=== PATIENT | male | born 1935 | race Caucasian/White ===

== ENCOUNTER 2018-02-20 13:15 | Emergency (ER) | payer OTHER ==
[~2018-02-20] VITALS: Ht 182.9 cm; Wt 77.1 kg
--- NOTE | 2018-02-20 13:20 | NUR ---
AZAM Corea FROM HOME D/T SYNCOPE/HYPOTENSION. TO ER BED 9, HOOKED TO MONITOR, CHANGED TO GOWN. AWAITING MD [place]
--- NOTE | 2018-02-20 13:21 | NUR ---
PLAIN GOODS HEMMER DEGRASSE AT BEDSIDE
[2018-02-20] MEDS ORDERED: IV NS 0.9% 1,000 ML BAG IV ONE ×2 (13:30→16:30)
[2018-02-20 13:54] LABS: BASOPHILS # (AUTO) 0.1 /CMM (0.0-0.2); BASOPHILS % (AUTO) 0.7 % (0.0-2.0); EOSINOPHILS % (AUTO) 0.7 % (0.0-6.0); HEMATOCRIT 36 % (39-51); LYMPHOCYTES # (AUTO) 1.6 /CMM (0.8-4.8); LYMPHOCYTES % (AUTO) 18.4 % (20.0-44.0); MEAN CORPUSCULAR HGB CONC 33 g/dl (31.0-36.0); MEAN CORPUSCULAR VOLUME 95 fL (80-96); MONOCYTES # (AUTO) 0.5 /CMM (0.1-1.30); MONOCYTES % (AUTO) 5.7 % (2.0-12.0); NEUTROPHILS # (AUTO) 6.5 /CMM (1.8-8.9); NEUTROPHILS % (AUTO) 74.5 % (43.0-81.0); PLATELET COUNT (AUTO) 236 /CMM (150-450); RED BLOOD CELL COUNT(AUTO) 3.81 MIL/uL (4.5-6.0); WHITE BLOOD COUNT (AUTO) 8.6 K/uL (4.3-11.0)
--- NOTE | 2018-02-20 14:10 | NUR ---
OFFERED TO DO ORTHOSTATIC VITAL SIGNS. PT REFUSED AND WOULD LIKE TO DO IT IN AN HOUR.
[2018-02-20 14:15] LABS: ALANINE AMINOTRANSFERASE 42 U/L (12-78); ALBUMIN 2.3 g/dL (3.4-5.0); ALKALINE PHOSPHATASE 253 U/L (46-116); ASPARTATE AMINOTRANSFERASE 56 U/L (15-37); BILIRUBIN,DIRECT 0.5 mg/dL (0.0-0.2); BILIRUBIN,TOTAL 1.3 mg/dL (0.2-1.0); CALCIUM, SERUM 8.3 mg/dL (8.5-10.1); CARBON DIOXIDE 25 mmol/L (21-32); CHLORIDE 105 mmol/L (98-107); CREATININE 1.1 mg/dL (0.6-1.3); GLUCOSE 106 mg/dL (74-106); POTASSIUM 3.4 mmol/L (3.5-5.1); SODIUM SERUM 140 mmol/L (136-145); TOTAL PROTEIN, SERUM 6.6 g/dL (6.4-8.2); UREA NITROGEN, BLOOD 21 mg/dL (7-18)
--- NOTE | 2018-02-20 15:43 | NUR ---
NO CALLED [phone]; SPOKE TO THE REP; SHE WILL SEND A SPINNING BATH PATROLLER TO [facility]
--- NOTE | 2018-02-20 15:57 | NUR ---
VERBAL ORDER FROM SUEDING AND BUFFING MACHINE OPERATOR DEGRASSE OF 1L NS.
--- NOTE | 2018-02-20 17:17 | NUR ---
CARDIOLOGY ON-CALL PAGED
--- NOTE | 2018-02-20 17:49 | NUR ---
PANEL ON-CALL PAGED
--- NOTE | 2018-02-20 17:53 | NUR ---
RM 116-1
--- NOTE | 2018-02-20 18:30 | NUR ---
PT SIGNED AGAINST MEDICAL ADVICE FORM. INFORMED ABOOUT THE RISKS AND BENEFITS OF LEAVING THE HOSPITAL, PT VERBALIZED UNDERSTANDING. IV removed. Catheter intact and site benign. Pressure and 4x4 applied to site. No bleeding noted. Patient left AMA in stable condition. Written and verbal after care instructions given. Patient verbalizes understanding of instruction.
[2018-02-20 18:44] VITALS: BP 106/63
== END 2018-02-20 18:45 | disposition left against medical advice (07) ==
LOC: ER 13:18
DX: R55 Syncope and collapse (principal); I48.91 Unspecified atrial fibrillation; I45.10 Unspecified right bundle-branch block; K21.9 Gastro-esophageal reflux disease without esophagitis; R42 Dizziness and giddiness; Z85.07 Personal history of malignant neoplasm of pancreas; Z98.49 Cataract extraction status, unspecified eye; Z95.0 Presence of cardiac pacemaker
CPT/HCPCS: 36415; 71045-TC; 80048-TC; 80076-TC; 84484-TC; 85025-TC; 85730-TC; A4606; J7030; Z7610